=== PATIENT | male | born 1955 | race African-American/Black ===

== ENCOUNTER 2016-11-22 08:44 | Emergency (ER) | payer OTHER ==
[~2016-11-22] VITALS: Ht 172.7 cm; Wt 78.0 kg
[2016-11-22] MEDS ORDERED: IBUPROFEN600 MG PO (09:56)
[2016-11-22 10:00] VITALS: BP 119/83
== END 2016-11-22 10:10 | disposition home or self-care (01) | DRG 563 ==
LOC: ED 08:44
DX: S39.012A Strain of muscle, fascia and tendon of lower back, initial encounter (principal); S50.02XA Contusion of left elbow, initial encounter; V49.49XA Driver injured in collision with other motor vehicles in traffic accident, initial encounter; Y92.410 Unspecified street and highway as the place of occurrence of the external cause

== ENCOUNTER 2018-01-16 16:13 | Emergency (ER) | payer OTHER ==
[~2018-01-16] VITALS: Ht 172.7 cm; Wt 77.3 kg
[~2018-01-16 16:13] MED LIST: IBUPROFEN600 MG PO
[2018-01-16] MEDS ORDERED: TORADOL PO (17:31)
[2018-01-16] MEDS ORDERED: KEFLEX500 M1 PO (17:31)
[2018-01-16 17:39] VITALS: BP 142/99
== END 2018-01-16 17:40 | disposition home or self-care (01) | DRG 605 ==
LOC: ED 16:13
DX: S61.231A Puncture wound without foreign body of left index finger without damage to nail, initial encounter (principal); S61.233A Puncture wound without foreign body of left middle finger without damage to nail, initial encounter; W29.4XXA Contact with nail gun, initial encounter; Y93.89 Activity, other specified; Y92.89 Other specified places as the place of occurrence of the external cause; Y99.0 Civilian activity done for income or pay

== ENCOUNTER 2023-11-26 10:29 | Emergency (ER) | payer OTHER ==
[~2023-11-26] VITALS: Ht 172.7 cm; Wt 77.0 kg
[~2023-11-26 10:29] MED LIST changes: +KEFLEX500 M1 PO; +TORADOL PO
[2023-11-26 10:38] VITALS: BP 114/80
[2023-11-26 11:00] VITALS: BP 104/64
[2023-11-26] MEDS ORDERED: PAXLOVID 10 X 11 TAB PO (11:24)
[2023-11-26 11:30] VITALS: BP 116/65
== END 2023-11-26 11:40 | disposition home or self-care (01) | DRG 179 ==
LOC: ED 10:29
DX: U07.1 COVID-19 (principal); J10.1 Influenza due to other identified influenza virus with other respiratory manifestations

== ENCOUNTER 2023-12-03 10:14 | Emergency (ER) | payer OTHER ==
[~2023-12-03] VITALS: Ht 172.7 cm; Wt 77.1 kg
[~2023-12-03 10:14] MED LIST changes: +PAXLOVID 10 X 11 TAB PO
[2023-12-03 11:28] VITALS: BP 148/72
== END 2023-12-03 11:32 | disposition home or self-care (01) | DRG 951 ==
LOC: ED 10:14
DX: Z20.822 Contact with and (suspected) exposure to COVID-19 (principal); Z86.16 Personal history of COVID-19